=== PATIENT | female | born 1990 | race Caucasian/White ===

== ENCOUNTER 2018-08-18 08:38 | Emergency (ER) | END 2018-08-18 10:25 | disposition home or self-care (01) ==

== ENCOUNTER 2018-08-20 08:44 | Emergency (ER) | END 2018-08-20 10:59 | disposition home or self-care (01) ==

== ENCOUNTER 2019-09-24 14:03 | Emergency (ER) | payer SELFPAY ==
[~2019-09-24] VITALS: Ht 162.6 cm; Wt 77.0 kg
[~2019-09-24 14:03] MED LIST: ACET325T33 PO; AMOX1TAB9 PO; CEPH-443 PO; DOXY-214 PO; HYDR-4011 PO; IBUP800T48 PO; PREN-39 PO; SULF1TAB31 PO
[2019-09-24 14:05] VITALS: BP 131/80; PULSE 99; RESP 16; Ht 162.6 cm; Wt 77.0 kg
== END 2019-09-24 14:20 | disposition home or self-care (01) ==
LOC: E/R 14:03
DX: N75.1 Abscess of Bartholin's gland (principal); Z76.0 Encounter for issue of repeat prescription
CPT/HCPCS: 99283